=== PATIENT | male | born 1965 | race Caucasian/White ===

== ENCOUNTER 2020-07-03 11:06 | Observation (INO) ==
[2020-07-03 12:36] LABS: Basophils % 0.5 % (0.0-0.8); Eosinophils % 0.2 % (0.00-10.9); Hematocrit 44.2 VOL% (42.0-52.0); Hemoglobin 15.3 GM/DL (14.0-18.0); Immature Granulocytes % 1.9 %; Immature Granulocytes Absolute 0.08 #; Lymphocytes # 0.7 10*3/uL (1.4-4.0); Lymphocytes % 16.4 % (21.2-54.2); Mean Corpuscular HGB Conc 34.6 GM/DL (32-36); Mean Platelet Volume 10.4 FL (9.6-12.0); Monocytes % 9.6 % (1.7-12.7); Neutrophils % 71.4 % (38.7-73.9); Platelet Count 152 T/CUMM (130-400); Red Blood Count 5.08 MC/CUMM (3.8-5.5); Red Cell Distribution Width 12.9 % (9.3-17.3); White Blood Count 4.3 T/CUMM (4-12)
[2020-07-03 13:01] LABS: Albumin 2.7 G/DL (3.4-5.0); Bilirubin,Total 0.9 MG/DL (0.2-1.0); Calcium 8.5 MG/DL (8.5-10.1); Ferritin 1607.4 ng/ml (26-388); Osmolality,Calculated 275.8 MOS/KG (273-304); Total Protein 6.4 G/DL (6.4-8.3)
[2020-07-03 13:07] LABS: Anisocytosis 1+; Band Neutrophils 7 % (0-10); Lymphocytes 13 % (20-55); Platelet Estimate Normal; Segmented Neutrophils 73 % (50-85); Total Cells Counted 100
[2020-07-03] MEDS ORDERED: cefTRIAXone 1,000 MG in SODIUM CHLORIDE 0.9% 100 ML IV STA (13:23)
[2020-07-03] MEDS ORDERED: DEXAMETHASONE 4 MG/1 ML VIAL IV STA (13:24)
[2020-07-03] MEDS ORDERED: DEXTROSE 50% 25 GM/50 ML VIAL IV PRN (13:42)
[2020-07-03] MEDS ORDERED: CETIRIZINE 10 MG TABLET PO PRN (13:42)
[2020-07-03] MEDS ORDERED: ONDANSETRON 4 MG/2 ML VIAL IV PRN (13:42)
[2020-07-03] MEDS ORDERED: ACETAMINOPHEN 325 MG TABLET PO PRN (13:42)
[2020-07-03] MEDS ORDERED: GLUCAGON 1 MG VIAL IM PRN (13:42)
[2020-07-03] MEDS ORDERED: AZITHROMYCIN INJ 500 MG in SODIUM CHLORIDE 0.9% 250 ML IV SCH (14:00)
[2020-07-03] MEDS ORDERED: ENOXAPARIN 40 MG/0.4 ML SYRINGE SUBCUT SCH (14:00)
[2020-07-03 14:26] LABS: Thyroid Stimulating Hormone 0.876 uIU/ml (0.358-3.74)
[2020-07-03] MEDS ORDERED: guaiFENesin 200 MG/10 ML UDCUP PO PRN (14:57)
[2020-07-03] MEDS: ZINC SULFATE 220 MG CAPSULE PO SCH (14:58)
[2020-07-03] MEDS: CHOLECALCIFEROL 1,000 UNIT TABLET PO SCH (14:58)
[2020-07-03] MEDS: INSULIN LISPRO 100 UNIT/ML SUBCUT SCH ×2 (17:36→21:30)
[2020-07-03] MEDS ORDERED: ATORVASTATIN 40 MG TABLET PO SCH (21:00)
[2020-07-03] MEDS: ASCORBIC ACID 500 MG TABLET PO SCH (21:30)
[2020-07-04 06:11] LABS: Basophils % 0.5 % (0.0-0.8); Hematocrit 40.6 VOL% (42.0-52.0); Hemoglobin 14.3 GM/DL (14.0-18.0); Immature Granulocytes % 2.3 %; Immature Granulocytes Absolute 0.09 #; Lymphocytes # 0.7 10*3/uL (1.4-4.0); Lymphocytes % 17.8 % (21.2-54.2); Mean Corpuscular HGB Conc 35.2 GM/DL (32-36); Mean Corpuscular Volume 85.3 FL (87-102); Mean Platelet Volume 10.8 FL (9.6-12.0); Monocytes % 9.1 % (1.7-12.7); Neutrophils % 70.3 % (38.7-73.9); Platelet Count 178 T/CUMM (130-400); Red Blood Count 4.76 MC/CUMM (3.8-5.5); Red Cell Distribution Width 12.5 % (9.3-17.3); White Blood Count 3.9 T/CUMM (4-12)
[2020-07-04 06:31] LABS: Calcium 8.5 MG/DL (8.5-10.1); Osmolality,Calculated 288.4 MOS/KG (273-304)
[2020-07-04 07:28] LABS: Lymphocytes 23 % (20-55); Platelet Estimate Adequate; Segmented Neutrophils 69 % (50-85); Total Cells Counted 100
[2020-07-04 07:29] LABS: Hypochromasia Slight; Microcytosis Slight
[2020-07-04] MEDS ORDERED: LISINOPRIL/HCTZ 20-12.5 MG TABLET PO SCH (09:00)
[2020-07-04] MEDS ORDERED: PANTOPRAZOLE 40 MG TABLET PO SCH (09:00)
[2020-07-04] MEDS ORDERED: amLODIPine 2.5 MG TABLET PO SCH (09:00)
[2020-07-04] MEDS: CHOLECALCIFEROL 1,000 UNIT TABLET PO SCH (09:16)
[2020-07-04] MEDS: ASCORBIC ACID 500 MG TABLET PO SCH (09:16)
[2020-07-04] MEDS: ZINC SULFATE 220 MG CAPSULE PO SCH (09:16)
[2020-07-04] MEDS: INSULIN LISPRO 100 UNIT/ML SUBCUT SCH ×2 (09:20→12:23)
[2020-07-04 11:36] VITALS: BP 113/69
[2020-07-04] MEDS ORDERED: DEXAMETHASONE 4 MG/1 ML VIAL IV SCH (12:00)
[2020-07-04] MEDS ORDERED: cefTRIAXone 1,000 MG in SYRINGE 1 EACH IV SCH (14:00)
== END 2020-07-04 13:28 | disposition home or self-care (01) ==
LOC: N.EDINP 11:06 → N.ED 11:06 → SUATTDRO 13:38 → N.2E 15:50
PROVIDERS: ADMIT Internal Medicine; ATTEND Family Medicine